=== PATIENT | male | born 2000 | race Caucasian/White ===

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

== ENCOUNTER → 2019-02-03 | Outpatient (CLI) | payer BC ==
[2019-02-03 20:35] LABS: Immunoglobulin E 4.27 IU/mL (0.00-114.00)
[2019-02-03 20:53] LABS: Parathyroid Hormone Intact 55.8 pg/mL (14.0-72.0)
[2019-02-04 12:16] LABS: Immunoglobulin A 28.2 mg/dL (60.0-350.0)
== END | disposition home or self-care (01) ==
LOC: LABWHC1 13:36
PROVIDERS: ATTEND Internal Medicine
DX: D80.1 Nonfamilial hypogammaglobulinemia (principal)
CPT/HCPCS: 36415; 82784; 82785; 83970; 84439; 84443; 86334

== ENCOUNTER → 2019-07-24 | Outpatient (CLI) | payer BC ==
[2019-07-24 10:34] LABS: Anisocytosis Slight; Basophils % (A) 0 %; Eosinophils # (A) 0.1 k/uL (0-0.7); Eosinophils % (A) 1 %; HCT 42.2 % (39.0-53.0); HGB 13.8 gm/dL (13.0-17.5); Lymphocytes # (A) 1.5 k/uL (1.0-4.8); Lymphocytes % (A) 21 %; MCH 24.2 pg (25.0-35.0); MCHC 32.7 g/dL (31.0-37.0); MCV 73.9 fL (80.0-100.0); Microcytosis Moderate; Monocytes # (A) 0.4 k/uL (0-1.0); Monocytes % (A) 5 %; Neutrophils # (A) 5.3 k/uL (1.3-7.7); Neutrophils % (A) 71 %; Platelet Count 121 k/uL (150-450); Poikilocytosis Slight; RDW 16.8 % (11.5-15.5); Reticulocyte % 1.9 % (0.5-2.0); WBC 7.4 k/uL (4.0-11.0)
[2019-07-24 20:30] LABS: % Iron Saturation 15.77 (15.00-50.00)
[2019-07-24 20:41] LABS: Ferritin 65.2 ng/mL (22.0-322.0)
== END | disposition home or self-care (01) ==
LOC: LABWHC1 09:32
PROVIDERS: ATTEND Internal Medicine
DX: E03.9 Hypothyroidism, unspecified (principal); L65.9 Nonscarring hair loss, unspecified; D64.9 Anemia, unspecified; F45.21 Hypochondriasis
CPT/HCPCS: 36415; 82728; 82947; 83540; 83550; 84439; 84443; 84630; 85025; 85045

== ENCOUNTER 2019-08-08 14:30 | Emergency (ER) | payer BC ==
[2019-08-08 14:35] VITALS: TEMP 97.9
--- NOTE | 2019-08-08 15:50 | XR ---
EXAMINATION TYPE: XR chest 2V DATE OF EXAM: 08/08/2019 COMPARISON: 04/05/2005 HISTORY: Chest pain TECHNIQUE: Frontal and lateral views of the chest are obtained. FINDINGS: There is no focal air space opacity, pleural effusion, or pneumothorax seen. The cardiac silhouette size is within normal limits. The osseous structures are intact. IMPRESSION: No acute cardiopulmonary process.
[2019-08-08 15:57] VITALS: RESP 18
[2019-08-08 16:02] LABS: Anisocytosis Slight; Basophils % (A) 0 %; Eosinophils # (A) 0.1 k/uL (0-0.7); Eosinophils % (A) 1 %; HCT 39.7 % (39.0-53.0); HGB 13.1 gm/dL (13.0-17.5); Lymphocytes # (A) 1.5 k/uL (1.0-4.8); Lymphocytes % (A) 15 %; MCH 24.3 pg (25.0-35.0); MCV 73.7 fL (80.0-100.0); Mean Platelet Volume 7.3; Microcytosis Moderate; Monocytes # (A) 0.4 k/uL (0-1.0); Monocytes % (A) 4 %; Neutrophils # (A) 7.6 k/uL (1.3-7.7); Neutrophils % (A) 78 %; Platelet Count 104 k/uL (150-450); Poikilocytosis Slight; RBC 5.38 m/uL (4.30-5.90); RDW 16.9 % (11.5-15.5); WBC 9.7 k/uL (4.0-11.0)
[2019-08-08 16:15] LABS: ALT 44 U/L (21-72); AST 23 U/L (17-59); African American GFR (CKD) >90 (>60 ml/min/1.73 sqM); Albumin 4.2 g/dL (3.5-5.0); Alkaline Phosphatase 95 U/L (38-126); Anion Gap 7 mmol/L; Blood Urea Nitrogen 15 mg/dL (9-20); Calcium 9.6 mg/dL (8.4-10.2); Carbon Dioxide 29 mmol/L (22-30); Chloride 106 mmol/L (98-107); Creatine Kinase 67 U/L (55-170); Glucose 95 mg/dL (74-99); Potassium 4.6 mmol/L (3.5-5.1); Sodium 142 mmol/L (137-145); Total Bilirubin 0.8 mg/dL (0.2-1.3); Total Protein 6.8 g/dL (6.3-8.2)
[2019-08-08 16:20] LABS: D-Dimer 0.29 mg/L FEU (<0.60); Partial Thromboplastin Time 24.1 sec (22.0-30.0); Prothrombin Time 10.6 sec (9.0-12.0)
--- NOTE | 2019-08-08 16:44 | ED ---
Chest Pain HPI - General Chief Complaint: Chest Pain Stated Complaint: Chest pain Time Seen by Provider: 08/08/19 14:57 Source: patient, RN notes reviewed Mode of arrival: ambulatory Limitations: no limitations - History of Present Illness Initial Comments: This is a 19-year-old male who presents with complaints of sharp left-sided chest pain. Mild to moderate in severity change much with certain movements or positional changes he was recently discharged from [facility]. 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 He currently denies any fevers chills nausea vomiting sweats cough or phlegm production or other symptoms. MD Complaint: chest pain - Related Data Home Medications Medication Instructions Recorded Confirmed Levothyroxine Sodium [Tirosint] 75 mcg PO DAILY 08/18/18 08/08/19 Ferrous Sulfate [Feosol] 325 mg PO DAILY 08/08/19 08/08/19 Metoprolol Succinate (ER) [Toprol 25 mg PO DAILY 08/08/19 08/08/19 Xl] Triamcinolone 0.1% Cream [Kenalog 1 applicatio TOPICAL BID 08/08/19 08/08/19 0.1% Cream] Allergies Allergy/AdvReac Type Severity Reaction Status Date / Time levofloxacin Allergy Rash/Hives Verified 08/08/19 14:56 sulfamethoxazole Allergy Rash/Hives Verified 08/08/19 14:56 [From Bactrim] trimethoprim [From Bactrim] Allergy Rash/Hives Verified 08/08/19 14:56 Review of Systems ROS Statement: Those systems with pertinent positive or pertinent negative responses have been documented in the HPI. ROS Other: All systems not noted in ROS Statement are negative. EKG Findings - EKG Results: EKG: interpreted by BLAINE, sinus rhythm (Sinus bradycardia rate of 57-year-old 44 QRS 82 QT/QTC 420/[address]-T wave changes) Past Medical History Past Medical History: Thyroid Disorder Additional Past Medical History / Comment(s): sensory auditory processing disorder. hypogammagloulinemia. speech disorder History of Any Multi-Drug Resistant Organisms: MRSA Date of last positivie culture/infection: 2009 MDRO Source:: left knee Past Surgical History: Adenoidectomy, Appendectomy, Tonsillectomy Additional Past Surgical History / Comment(s): ear tubes. Past Psychological History: No Psychological Hx Reported Smoking Status: Never smoker Past Alcohol Use History: None Reported Past Drug Use History: None Reported General Exam - General Exam Comments Initial Comments: This is a well-developed well-nourished awake alert oriented 3 male Limitations: no limitations General appearance: alert, in no apparent distress Head exam: Present: atraumatic, normocephalic, normal inspection Eye exam: Present: normal appearance, PERRL, EOMI. Absent: scleral icterus, conjunctival injection, periorbital swelling ENT exam: Present: normal exam, mucous membranes moist Neck exam: Present: normal inspection. Absent: tenderness, meningismus, lymphadenopathy Respiratory exam: Present: normal lung sounds bilaterally, chest wall tenderness (Left costochondral margin. No step-off or crepitation). Absent: respiratory distress, wheezes, rales, rhonchi, stridor Cardiovascular Exam: Present: regular rate, normal rhythm, normal heart sounds. Absent: systolic murmur, diastolic murmur, rubs, gallop, clicks GI/Abdominal exam: Present: soft, normal bowel sounds. Absent: distended, tenderness, guarding, rebound, rigid Extremities exam: Present: normal inspection, full ROM, normal capillary refill. Absent: tenderness, pedal edema, joint swelling, calf tenderness Back exam: Present: normal inspection Neurological exam: Present: alert, oriented X3, CN II-XII intact Psychiatric exam: Present: normal affect, normal mood Skin exam: Present: warm, dry, intact, normal color. Absent: rash Course Vital Signs 08/08/19 08/08/19 08/08/19 14:32 14:54 15:56 Temperature 97.9 F Pulse Rate 61 67 Pulse Rate [ 58 L Drum Maker ] Respiratory 22 18 Rate Blood Pressure 145/85 137/64 O2 Sat by Pulse 100 97 Oximetry 08/08/19 16:48 Temperature Pulse Rate 60 Pulse Rate [ Drum Maker ] Respiratory 18 Rate Blood Pressure 125/86 O2 Sat by Pulse 99 Oximetry Chest Pain MDM - MDM I did review the imaging and report no acute findings. I did a long discussion with the patient's mother regarding the findings of critical presentation is consistent with costochondritis. Patient will be discharged he does have nonsteroidal anti-inflammatories at home which she will use. He will otherwise continue with his follow-ups. Additionally the patient does recall that he was lifting helps with [employer] in prior to the manifestation of the chest discomfort Disposition Clinical Impression: Costochondritis, Chest wall syndrome Disposition: HOME SELF-CARE Condition: Good Instructions (If sedation given, give patient instructions): Costochondritis (ED) Additional Instructions: Use your [id number]-vkejhzh ibuprofen as discussed. Is patient prescribed a controlled substance at d/c from ED?: No Referrals: Jonathon Mendes MD [Primary Care Provider] - 1-2 days
[2019-08-08 17:38] VITALS: BP 141/76; PULSE 87
== END 2019-08-08 17:39 | disposition home or self-care (01) ==
LOC: EC 14:30
DX: M94.0 Chondrocostal junction syndrome [Tietze] (principal); E07.9 Disorder of thyroid, unspecified; Z79.890 Hormone replacement therapy; Z79.899 Other long term (current) drug therapy; Z88.1 Allergy status to other antibiotic agents; Z88.2 Allergy status to sulfonamides
CPT/HCPCS: 36415; 71046; 80053; 82550; 83690; 83735; 83880; 84484; 85025; 85379; 85610; 85730; 93005; 99285

== ENCOUNTER → 2019-08-25 | Outpatient (CLI) | payer BC ==
[2019-08-25 13:16] LABS: Anisocytosis Slight; Basophils # (A) 0.1 k/uL (0-0.2); Basophils % (A) 1 %; Eosinophils # (A) 0.1 k/uL (0-0.7); Eosinophils % (A) 1 %; HCT 43.6 % (39.0-53.0); Lymphocytes # (A) 1.5 k/uL (1.0-4.8); Lymphocytes % (A) 18 %; MCHC 34.4 g/dL (31.0-37.0); MCV 75.8 fL (80.0-100.0); Mean Platelet Volume 7.3; Microcytosis Slight; Monocytes # (A) 0.4 k/uL (0-1.0); Monocytes % (A) 5 %; Neutrophils # (A) 6.1 k/uL (1.3-7.7); Neutrophils % (A) 73 %; Platelet Count 128 k/uL (150-450); Poikilocytosis Slight; RBC 5.75 m/uL (4.30-5.90); RDW 16.8 % (11.5-15.5); WBC 8.4 k/uL (4.0-11.0)
[2019-08-25 14:49] LABS: Erythrocyte Sedimentation Rate 7 mm/hr (0-15)
[2019-08-25 18:45] LABS: Protein, Total 6.8 g/dL (6.2-8.2)
[2019-08-25 20:36] LABS: ALT 46 U/L (10-49); AST 25 U/L (14-35); African American GFR (CKD) 157.5 (60.0-200.0); Albumin/Globulin Ratio 2.58 (1.60-3.17); Alkaline Phosphatase 145 U/L (41-126); BUN/Creat Ratio 24.29 Ratio (12.00-20.00); C Reactive Protein <0.4 mg/dL (0.0-0.8); Calcium 9.9 mg/dL (8.7-10.3); Carbon Dioxide 26.2 mmol/L (21.6-31.8); Chloride 106 mmol/L (96-109); Cholesterol 120 mg/dL (0-200); Creatine Kinase 87 U/L (35-257); Globulin 1.9 g/dL (1.6-3.3); Glucose 99 mg/dL (70-110); LDL Cholesterol,Calculated 67.8 mg/dL (0.0-131.0); Magnesium 1.9 mg/dL (1.5-2.4); Non-African American GFR(CKD) 135.9 (60.0-200.0); Phosphorus 3.7 mg/dL (2.4-5.1); Potassium 4.8 mmol/L (3.5-5.5); Sodium 140 mmol/L (135-145); Total Bilirubin 0.7 mg/dL (0.3-1.2); Total Protein 6.8 g/dL (6.2-8.2); Uric Acid 7.8 mg/dL (3.7-8.7)
[2019-08-27 10:14] LABS: Albumin 4.43 g/dL (3.80-4.90); Gamma Globulin 0.93 g/dL (0.70-1.50)
== END | disposition home or self-care (01) ==
LOC: LABWHC1 11:47
PROVIDERS: ATTEND Internal Medicine
DX: D64.9 Anemia, unspecified (principal); E78.5 Hyperlipidemia, unspecified; E87.1 Hypo-osmolality and hyponatremia; E05.90 Thyrotoxicosis, unspecified without thyrotoxic crisis or storm; E87.0 Hyperosmolality and hypernatremia; D80.1 Nonfamilial hypogammaglobulinemia; R23.8 Other skin changes
CPT/HCPCS: 36415; 80053; 80061; 82306; 82550; 83735; 84100; 84165; 84443; 84550; 85025; 85652; 86038; 86140

== ENCOUNTER 2019-09-20 00:54 | Inpatient (IN) | payer BC ==
[2019-09-20] MEDS ORDERED: ONDANSETRON 4 MG/2 ML VIAL IVP STA (01:19)
[2019-09-20] MEDS ORDERED: SODIUM CHLORIDE 0.9% 1,000 ML IV STA (01:19)
[2019-09-20] MEDS ORDERED: KETOROLAC 30 MG/ML 1 ML VIAL IVP STA (01:19)
--- NOTE | 2019-09-20 01:22 | ED ---
Abdominal Pain HPI - General Chief Complaint: Abdominal Pain Stated Complaint: Side Pain/Pancreatitis Time Seen by Provider: 09/20/19 01:04 Source: patient, family Mode of arrival: ambulatory Limitations: no limitations - History of Present Illness Initial Comments: 19-year-old male patient presents to the emergency department today for evaluation of left flank and side pain. Patient states the pain started approximately a day and a half ago. Patient states the pain has been constant but does wax and wane. Reports a constant dull aching pain with intermittent periods of sharp stabbing pain. Denies any difficulty with bowel movements or urination. Denies hematuria. Patient does have recent history of necrotizing pancreatitis with a splenic thrombus. He also has an autoimmune condition hypogammaglobulinemia. Patient does see a specialist at [facility] for this. He is reports intermittent nausea with decreased appetite. Denies fevers or chills. Denies history of kidney stones. Patient denies any recent rash, shortness breath, chest pain, numbness, tingling, dizziness, weakness, headache, visual changes, or any other complaints. - Related Data Home Medications Medication Instructions Recorded Confirmed Levothyroxine Sodium [Tirosint] 75 mcg PO DAILY 08/18/18 08/08/19 Ferrous Sulfate [Feosol] 325 mg PO DAILY 08/08/19 08/08/19 Metoprolol Succinate (ER) [Toprol 25 mg PO DAILY 08/08/19 08/08/19 Xl] Triamcinolone 0.1% Cream [Kenalog 1 applicatio TOPICAL BID 08/08/19 08/08/19 0.1% Cream] Allergies Allergy/AdvReac Type Severity Reaction Status Date / Time levofloxacin Allergy Rash/Hives Verified 09/20/19 01:01 sulfamethoxazole Allergy Rash/Hives Verified 09/20/19 01:01 [From Bactrim] trimethoprim [From Bactrim] Allergy Rash/Hives Verified 09/20/19 01:01 Review of Systems ROS Statement: Those systems with pertinent positive or pertinent negative responses have been documented in the HPI. ROS Other: All systems not noted in ROS Statement are negative. Past Medical History Past Medical History: Thyroid Disorder Additional Past Medical History / Comment(s): sensory auditory processing disorder. hypogammagloulinemia. speech disorder History of Any Multi-Drug Resistant Organisms: MRSA Date of last positivie culture/infection: 2010 MDRO Source:: left knee Past Surgical History: Adenoidectomy, Appendectomy, Tonsillectomy Additional Past Surgical History / Comment(s): ear tubes. Past Psychological History: No Psychological Hx Reported Smoking Status: Never smoker Past Alcohol Use History: None Reported Past Drug Use History: None Reported General Exam Limitations: no limitations General appearance: alert, in no apparent distress, other (This is a well- developed, well-nourished adult male patient in no acute distress. Vital signs upon presentation are temperature 98.3F, pulse 89, respirations 20, blood pressure 158/91, pulse ox 97% on room air.) Eye exam: Present: normal appearance, PERRL, EOMI. Absent: scleral icterus, conjunctival injection, periorbital swelling ENT exam: Present: normal exam, normal oropharynx, mucous membranes moist Neck exam: Present: normal inspection. Absent: tenderness, meningismus, lymphadenopathy Respiratory exam: Present: normal lung sounds bilaterally. Absent: respiratory distress, wheezes, rales, rhonchi, stridor Cardiovascular Exam: Present: regular rate, normal rhythm, normal heart sounds. Absent: systolic murmur, diastolic murmur, rubs, gallop, clicks GI/Abdominal exam: Present: soft, tenderness (Left lower quadrant tenderness), normal bowel sounds. Absent: distended, guarding, rebound, rigid Back exam: Present: normal inspection, CVA tenderness (L). Absent: CVA tenderness (R) Neurological exam: Present: alert, oriented X3, CN II-XII intact Psychiatric exam: Present: normal affect, normal mood Skin exam: Present: warm, dry, intact, normal color. Absent: rash Course Vital Signs 09/20/19 09/20/19 09/20/19 00:57 02:00 03:34 Temperature 98.3 F 97.2 F L Pulse Rate 89 82 77 Respiratory 20 18 18 Rate Blood Pressure 158/91 141/72 127/66 O2 Sat by Pulse 97 97 98 Oximetry Medical Decision Making - Medical Decision Making 19-year-old male patient with history of necrotizing pancreatitis in March 2018 presents to the emergency department today for evaluation of left-sided abdominal pain. Physical examination did reveal some left mid to lower abdom inal tenderness. Some left CVA tenderness. Labs reviewed and did reveal mildly elevated lipase at 312. Given history we did perform CT abdomen and pelvis which showed inflammation and fluid surrounding the pancreas, mother states that this was not present with his last MRCP 2 months ago. Also showed hepatosplenomegaly which is consistent with his history. I did discuss findings and results with the patient and family. They're uncomfortable being discharged at this time. We'll admit for IV fluids and repeat labs in the morning. Dr. Mendes is accepting. - Lab Data Result diagrams: 09/20/19 02:00 09/20/19 02:00 Lab Results 09/20/19 09/20/19 09/20/19 Range/Units 02:00 02:00 02:00 WBC 8.2 (4.0-11.0) k/uL RBC 5.07 (4.30-5.90) m/uL Hgb 13.4 (13.0-17.5) gm/dL Hct 39.1 (39.0-53.0) % MCV 77.2 L (80.0-100.0) fL MCH 26.4 (25.0-35.0) pg MCHC 34.2 (31.0-37.0) g/dL RDW 15.5 (11.5-15.5) % Plt Count 108 L (150-450) k/uL Neutrophils % 70 % Lymphocytes % 20 % Monocytes % 6 % Eosinophils % 2 % Basophils % 0 % Neutrophils # 5.8 (1.3-7.7) k/uL Lymphocytes # 1.7 (1.0-4.8) k/uL Monocytes # 0.5 (0-1.0) k/uL Eosinophils # 0.1 (0-0.7) k/uL Basophils # 0.0 (0-0.2) k/uL Poikilocytosis Slight Microcytosis Slight Sodium 138 (137-145) mmol/L Potassium 3.9 (3.5-5.1) mmol/L Chloride 104 (98-107) mmol/L Carbon Dioxide 24 (22-30) mmol/L Anion Gap 10 mmol/L BUN 20 (9-20) mg/dL Creatinine 0.71 (0.66-1.25) mg/dL Est GFR (CKD-EPI)AfAm >90 (>60 ml/min/1.73 sqM) Est GFR (CKD-EPI)NonAf >90 (>60 ml/min/1.73 sqM) Glucose 102 H (74-99) mg/dL Plasma Lactic Acid [place] 0.6 L (0.7-2.0) mmol/L Calcium 9.9 (8.4-10.2) mg/dL Total Bilirubin 0.6 (0.2-1.3) mg/dL AST 21 (17-59) U/L ALT 24 (4-49) U/L Alkaline Phosphatase 118 (38-126) U/L Total Protein 7.2 (6.3-8.2) g/dL Albumin 4.5 (3.5-5.0) g/dL Amylase 64 (30-110) U/L Lipase 312 H (23-300) U/L Urine Color Urine Appearance (Clear) Urine pH (5.0-8.0) Ur Specific [place] (1.001-1.035) Urine Protein (Negative) Urine Glucose (UA) (Negative) Urine Ketones (Negative) Urine Blood (Negative) Urine Nitrite (Negative) Urine Bilirubin (Negative) Urine Urobilinogen (<2.0) mg/dL Ur Leukocyte Esterase (Negative) 09/20/19 Range/Units 02:00 WBC (4.0-11.0) k/uL RBC (4.30-5.90) m/uL Hgb (13.0-17.5) gm/dL Hct (39.0-53.0) % MCV (80.0-100.0) fL MCH (25.0-35.0) pg MCHC (31.0-37.0) g/dL RDW (11.5-15.5) % Plt Count (150-450) k/uL Neutrophils % % Lymphocytes % % Monocytes % % Eosinophils % % Basophils % % Neutrophils # (1.3-7.7) k/uL Lymphocytes # (1.0-4.8) k/uL Monocytes # (0-1.0) k/uL Eosinophils # (0-0.7) k/uL Basophils # (0-0.2) k/uL Poikilocytosis Microcytosis Sodium (137-145) mmol/L Potassium (3.5-5.1) mmol/L Chloride (98-107) mmol/L Carbon Dioxide (22-30) mmol/L Anion Gap mmol/L BUN (9-20) mg/dL Creatinine (0.66-1.25) mg/dL Est GFR (CKD-EPI)AfAm (>60 ml/min/1.73 sqM) Est GFR (CKD-EPI)NonAf (>60 ml/min/1.73 sqM) Glucose (74-99) mg/dL Plasma Lactic Acid Anjum (0.7-2.0) mmol/L Calcium (8.4-10.2) mg/dL Total Bilirubin (0.2-1.3) mg/dL AST (17-59) U/L ALT (4-49) U/L Alkaline Phosphatase (38-126) U/L Total Protein (6.3-8.2) g/dL Albumin (3.5-5.0) g/dL Amylase (30-110) U/L Lipase (23-300) U/L Urine Color Light Yellow Urine Appearance Clear (Clear) Urine pH 6.5 (5.0-8.0) Ur Specific [place] 1.016 (1.001-1.035) Urine Protein Negative (Negative) Urine Glucose (UA) Negative (Negative) Urine Ketones Negative (Negative) Urine Blood Negative (Negative) Urine Nitrite Negative (Negative) Urine Bilirubin Negative (Negative) Urine Urobilinogen <2.0 (<2.0) mg/dL Ur Leukocyte Esterase Negative (Negative) - Radiology Data Radiology results: report reviewed, image reviewed KUB x-ray was obtained. Report was reviewed in its entirety. Impression by Dr. Banegas shows nonacute abdomen. No change. CT abdomen and pelvis is obtained with contrast. Report was reviewed in its entirety. Impression by Dr. Banegas shows inflammatory changes around the pancreas with fluid consistent with acute pancreatitis. This is a change compared to last exam. Mild free fluid in the pelvis. Hepatospleno megaly. No evidence of portal vein thrombosis. Fluid accumulation on the anterior surface of the right lobe of the liver could be a pseudocyst or some loculated ascites. Disposition Clinical Impression: Pancreatitis Disposition: ADMITTED IP TO THIS [facility] Condition: Serious Referrals: Jonathon Mendes MD [Primary Care Provider] - 1-2 days Decision to Admit Reason: Admit from EC Decision Date: 09/20/19 Decision Time: 04:28
[2019-09-20 02:19] LABS: Basophils % (A) 0 %; Eosinophils # (A) 0.1 k/uL (0-0.7); Eosinophils % (A) 2 %; HCT 39.1 % (39.0-53.0); HGB 13.4 gm/dL (13.0-17.5); Lymphocytes # (A) 1.7 k/uL (1.0-4.8); Lymphocytes % (A) 20 %; MCH 26.4 pg (25.0-35.0); MCHC 34.2 g/dL (31.0-37.0); MCV 77.2 fL (80.0-100.0); Mean Platelet Volume 8.5; Microcytosis Slight; Monocytes # (A) 0.5 k/uL (0-1.0); Monocytes % (A) 6 %; Neutrophils # (A) 5.8 k/uL (1.3-7.7); Neutrophils % (A) 70 %; Platelet Count 108 k/uL (150-450); Poikilocytosis Slight; RBC 5.07 m/uL (4.30-5.90); RDW 15.5 % (11.5-15.5); WBC 8.2 k/uL (4.0-11.0)
[2019-09-20 02:21] LABS: Appearance,Urine Clear (Clear); Bilirubin,Urine Negative (Negative); Blood,Urine Negative (Negative); Color,Urine Light Yellow; Glucose,Urine (UA) Negative (Negative); Ketones,Urine Negative (Negative); Leukocyte Esterase,Urine Negative (Negative); Nitrite,Urine Negative (Negative); PH, Urine 6.5 (5.0-8.0); Protein,Urine Negative (Negative); Specific Gravity,Urine 1.016 (1.001-1.035); Urobilinogen,Urine <2.0 mg/dL (<2.0)
--- NOTE | 2019-09-20 02:25 | XR ---
EXAMINATION TYPE: XR KUB DATE OF EXAM: 09/20/2019 COMPARISON: 04/27/2014 HISTORY: Abdominal pain TECHNIQUE: 2 views upright FINDINGS: There is no sign of intestinal obstruction or pneumoperitoneum. Fecal pattern is normal. Th ere are no pathologic calcifications over the kidneys. Lung bases are clear. There is no evidence of a mass. IMPRESSION: Nonacute abdomen. No change.
[2019-09-20 02:31] LABS: ALT 24 U/L (4-49); AST 21 U/L (17-59); African American GFR (CKD) >90 (>60 ml/min/1.73 sqM); Albumin 4.5 g/dL (3.5-5.0); Alkaline Phosphatase 118 U/L (38-126); Amylase 64 U/L (30-110); Anion Gap 10 mmol/L; Blood Urea Nitrogen 20 mg/dL (9-20); Calcium 9.9 mg/dL (8.4-10.2); Carbon Dioxide 24 mmol/L (22-30); Chloride 104 mmol/L (98-107); Glucose 102 mg/dL (74-99); Non-African American GFR(CKD) >90 (>60 ml/min/1.73 sqM); Potassium 3.9 mmol/L (3.5-5.1); Sodium 138 mmol/L (137-145); Total Bilirubin 0.6 mg/dL (0.2-1.3); Total Protein 7.2 g/dL (6.3-8.2)
--- NOTE | 2019-09-20 03:43 | CT ---
EXAMINATION TYPE: CT abdomen pelvis w con DATE OF EXAM: 09/20/2019 COMPARISON: 02/14/2013 HISTORY: pain CT DLP: 1971 mGycm Automated exposure control for dose reduction was used. CONTRAST: Performed with IV Contrast, patient injected with 100 mL of Isovue 300. Multiple axial sections were obtained from the diaphragm to the floor the pelvis with IV contrast. Lung bases are clear. There is no pleural effusion. There is a 4.5 cm cystic fluid collection on the anterior aspect of the right lobe of the liver. Is not clear if this is within the liver. This is mor e likely extracapsular. Spleen is markedly enlarged and measures 21 cm. The bile ducts are not dilate d. Liver is mildly enlarged and measures 20 cm. The stomach is intact. There is fat stranding and fluid around the pancreas. The bile ducts are not dilated. I see no discre te pancreatic mass. There is no adrenal mass. Kidneys show satisfactory contrast opacification. There is no hydronephrosi s. Bladder distends smoothly. There is small amount of free fluid in the cul-de-sac. There is no mesenteric edema. There is no evidence of a bowel obstruction. There is no sign of free a ir. Lumbar vertebra have normal alignment. Posterior elements are intact. There is no compression fra cture. Bony pelvis is intact. Appendix is not seen. There is no sign of thickened appendix. IMPRESSION: Inflammatory changes around the pancreas with fluid consistent with acute pancreatitis. This is a jayne nge compared to old exam. Mild free fluid in the pelvis. Hepatosplenomegaly. No evidence of portal vein thrombosis. Fluid accumulation on the anterior surface of the right lobe of the liver could BE a pseudocyst or some loculated ascites.
[2019-09-20] MEDS ORDERED: MORPHINE SULFATE 4 MG/ML SYRINGE IVP STA (03:45)
[2019-09-20] MEDS ORDERED: NALOXONE 0.4 MG/ML 1 ML VIAL IV PRN (04:09)
[2019-09-20] MEDS ORDERED: ONDANSETRON 4 MG/2 ML VIAL IVP PRN (04:09)
[2019-09-20] MEDS: SODIUM CHLORIDE 0.9% 1,000 ML IV SCH ×2 (06:01→19:24)
[2019-09-20] MEDS: MORPHINE SULFATE 4 MG/ML SYRINGE IV PRN ×2 (11:33→19:23)
--- NOTE | 2019-09-20 12:22 | P.HPIM ---
History of Present Illness H&P Date: 09/20/19 ( admission and discharge) Chief Complaint: patient has underlying acute pancreatitis with the exacerbation patient admission and discharge summary. Date of service 09/20/2019. Patient Data from 476 , date of 1999, full code. Presented to the emergency room with abdominal painKUB was negative,computed tomography scan impression indicating inflammatory changes around the pancreas with the fluid consistent with acute pancreatitis., hepatosplenomegaly, no evid ence of portal vein thrombosis,lipase is 312. And on Micronase 64. Patient subsequently admitted to observation until we contact the [facility] and transfer to the pediatric [facility] GI section. Patient admitted under observation status and I did talk to Dr. Traore today after several discussion with the other entity and [facility] for the possibility of the transfer her to [facility] as they instructed the patient and his mother. Dr. Traore indicating that continue clear liquid diet as well as continue the current medication. And he will be discussing with the administration and accepting the patient. Past medical history chronic pancreatitis history of fever in the past and has also underlying genetic abnormalities and has been treated and [facility] pediatric floor extended over the years and that the advised him in the gastrointestinal final Department if he had any abdominal pain to report to [facility]. However he called the [facility] yesterday he saw them go to the closest hospital and to be transferred however this messages was not transplanted to the PA who admitted the patient lost night on the floor and he supposed to go direct transfer to [facility]. History of possible autoimmune disease, genetic disease. Patient is adopted and no history of his biological when necessary's. ALLERGY to levofloxacin once sulfamethoxazole trimethoprim. He is a full code and his data is 6 foot 1 inch and weight 105.4 kg. BSA 2.29 m, BMI 30.7 kg/m. And . Review of system: Patient had started the abdominal pain which is progressively worsening started 2-3 days prior to admission and a UA, uncomfortable at that time they came to the ER after the cold the [facility]. And he denied any nausea or vomiting but the pain his in the level of 7-8 however now i t's average of 6 or 5 with the pain medication. Respiratory no cough or expectoration GI mainly the abdominal pain with a history of prior pancreatitis has been followed by the GI clinic in [facility]. The urinary no dysuria or hematuria. Normal bowel movement. Musculoskeletal was negative no pain no cramps. At the wrist or the 14 point was negative. On on exam: Vital sign temperature 96.3 F oral, pulse 61/m, regular Respiratory rate 16 blood pressure 122/59 with a mean arterial pressure 80. Pulse ox 97%(. HEENT head was normocephalic and atraumatic, he had facial erythema was rosacea was ruling out autoimmune disease. Oropharynx was normal natural teeth uvula midline. Neck was supple no JVD no thyromegaly no lymphadenopathy trachea midline. Chest was clear to auscultation percussion. Heart regular sinus rhythm The abdomen tenderness positive bowel sounds, the tenderness from the epigastric extended to the left side and no history of stone. Indicating of the pain of t he pancreatitis. Extremities: No edema and positive pulses. Assessment: #1 acute pancreatitis, #2 recurrent with the associated inflammatory finding on the CT. #3 hepatosplenomegaly by the CAT scan. #4 rosacea fascia until proven otherwise and he has been followed by the autoimmune in the [facility]. Recommendation and plan: After significant discussion and the time involved for transfer failure 1 hour added to communication with the family mother and father have an hour with his examination. Patient accepted by Dr. Traore to [facility] and will be transferred today to [facility]. Dr. Mcknight requested this CDs for the investigation done as well Past Medical History Past Medical History: Thyroid Disorder Additional Past Medical History / Comment(s): sensory auditory processing disorder. hypogammagloulinemia. speech disorder History of Any Multi-Drug Resistant Organisms: MRSA Date of last positivie culture/infection: 2009 MDRO Source:: left knee Past Surgical History: Adenoidectomy, Appendectomy, Tonsillectomy Additional Past Surgical History / Comment(s): ear tubes. Smoking Status: Never smoker Medications and Allergies Home Medications Medication Instructions Recorded Confirmed Type Levothyroxine Sodium [Tirosint] 75 mcg PO DAILY 08/18/18 09/20/19 History Triamcinolone 0.1% Cream [Kenalog 1 applicatio TOPICAL BID 08/08/19 09/20/19 History 0.1% Cream] Acetaminophen Tab [Tylenol Tab] 325 mg PO Q4H PRN 09/20/19 09/20/19 History Allergies Allergy/AdvReac Type Severity Reaction Status Date / Time levofloxacin Allergy Rash/Hives Verified 09/20/19 09:55 sulfamethoxazole Allergy Rash/Hives Verified 09/20/19 09:55 [From Bactrim] trimethoprim [From Bactrim] Allergy Rash/Hives Verified 09/20/19 09:55 Physical Exam Vitals: Vital Signs Temp Pulse Pulse Resp BP BP Pulse Ox 09/20/19 09:55 96.3 F L 61 16 122/59 09/20/19 07:10 59 L 16 97 09/20/19 06:11 98.0 F 72 15 130/78 96 09/20/19 03:34 77 18 127/66 98 09/20/19 02:00 97.2 F L 82 18 141/72 97 09/20/19 00:57 98.3 F 89 20 158/91 97 Intake and Output 09/19/19 09/20/19 09/20/19 22:59 06:59 14:59 Other: Weight 105.4 kg 105.4 kg Results CBC & Chem 7: 09/20/19 02:00 09/20/19 02:00 Labs: Abnormal Lab Results - Last 24 Hours (Table) 09/20/19 09/20/19 09/20/19 Range/Units 02:00 02:00 02:00 MCV 77.2 L (80.0-100.0) fL Plt Count 108 L (150-450) k/uL Glucose 102 H (74-99) mg/dL Plasma Lactic Acid Anjum 0.6 L (0.7-2.0) mmol/L Lipase 312 H (23-300) U/L Thrombosis Risk Factor Assmnt - Choose All That Apply Any of the Below Risk Factors Present?: Yes Other Risk Factors: No Other congenital or acquired thrombophilia - If yes, enter type in comment: No
[2019-09-21] MEDS: SODIUM CHLORIDE 0.9% 1,000 ML IV SCH ×2 (00:44→08:54)
[2019-09-21 07:21] VITALS: BP 112/55; PULSE 67; RESP 17; TEMP 97.9
[2019-09-21] MEDS ORDERED: LEVOTHYROXINE 75 MCG TAB PO SCH (08:30)
[2019-09-21 09:59] LABS: Basophils % (A) 0 %; Eosinophils # (A) 0.1 k/uL (0-0.7); Eosinophils % (A) 1 %; HCT 34.5 % (39.0-53.0); HGB 11.7 gm/dL (13.0-17.5); Lymphocytes # (A) 0.9 k/uL (1.0-4.8); Lymphocytes % (A) 21 %; MCH 26.7 pg (25.0-35.0); MCV 78.7 fL (80.0-100.0); Mean Platelet Volume 8.2; Monocytes # (A) 0.3 k/uL (0-1.0); Monocytes % (A) 6 %; Neutrophils # (A) 3.1 k/uL (1.3-7.7); Neutrophils % (A) 71 %; Poikilocytosis Slight; RBC 4.38 m/uL (4.30-5.90); RDW 15.5 % (11.5-15.5); WBC 4.4 k/uL (4.0-11.0)
[2019-09-21 10:08] LABS: ALT 20 U/L (4-49); AST 24 U/L (17-59); African American GFR (CKD) >90 (>60 ml/min/1.73 sqM); Albumin 3.6 g/dL (3.5-5.0); Alkaline Phosphatase 93 U/L (38-126); Amylase <30 U/L (30-110); Anion Gap 7 mmol/L; Blood Urea Nitrogen 12 mg/dL (9-20); Calcium 9.2 mg/dL (8.4-10.2); Carbon Dioxide 23 mmol/L (22-30); Chloride 109 mmol/L (98-107); Glucose 122 mg/dL (74-99); Non-African American GFR(CKD) >90 (>60 ml/min/1.73 sqM); Potassium 4.1 mmol/L (3.5-5.1); Sodium 139 mmol/L (137-145); Total Bilirubin 0.7 mg/dL (0.2-1.3); Total Protein 5.9 g/dL (6.3-8.2)
[2019-09-21 10:24] LABS: Platelet Count 92 k/uL (150-450)
[2019-09-21 10:25] LABS: Anisocytosis (M) Present
[2019-09-21] MEDS ORDERED: ACETAMINOPHEN TAB 325 MG TAB PO PRN (12:01)
--- NOTE | 2019-09-21 12:38 | P.DS ---
Providers Date of admission: 09/20/19 04:21 Expected date of discharge: 09/21/19 Attending physician: Jonathon Mendes Primary care physician: Jonathon Mendes Discharge summary date of service 09/21/2019. Final diagnoses #1 acute pancreatitis exacerbation. #2 hypothyroidism. #3 psoriasis. #4 hepatosplenomegaly. Admitted on 09/20/2019 discharge on 09/21 2019. 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 They did the computed tomography scan of the abdomen and laboratory indicating lipase elevation with the abdominal distribution of pain consistent with acute pancreatitis, KUB also was obtained in the ER and no evidence of cholelithiasis. Patient has a planned to have MRCP at the gastroenterology Department of the pediatric. Hospital course: ER requested patient to be admitted patient placed on nothing by mouth and IV fluid and pain medication, the family requested that I communicate with the [facility] to be transferred to their facility. Initially they agreed for the transfer, however they change their mind and they have full capacity and no blood available for the patient. As patient planned for discharge on the 09 20 as a transfer to [facility] GI. Pediatrics. They have long communication and several communication between me and Dr. Traore the [facility] pediatric GI during the day as well, requested that he reports of the CT and the laboratory which was send to them. The discharge has been withheld from [facility] because of no bed available. Laboratory done today which is indicating resolution of the acute pancreatitis with the serum lipase normalized as well as serum amylase, no abdominal pain, no fever no chills, vital signs stable and cat swamper is stable. I did call Dr. Traore on his cell phone we discussed with the case and he still no bad and [facility], however patient is result of this pain and he is normalize with no acute abdomen. Clinical decision the patient is stable to be discharged today after he eats lunch and if he is no symptoms he can go home to be followed in [facility] and Dr. Traore from [facility] said they will be in communication with his mother for laboratory test and the plan for MRCP. [id number] exam today: Head was normocephalic and atraumatic no headache, ear and nose and throat is normal, fascial he has rosacea. Neck supple no JVD no thyromegaly no lymphadenopathy trachea midline. Chest is clear to auscultation and percussion and no wheezes no rhonchi's. Heart: Regular sinus rhythm no dysrhythmia. Abdomen soft positive bowel sounds no organ enlargement except for the liver was however could not elicited that clinically the CAT scan indicating that. Extremities no edema and positive pulses. Skin: He had a psoriatic patch on the right knee treated in [facility] with the cream. Also he had rosacea fascial redness. Keratosis. Pilaris of the arms and the back no treatment needed. Neurologically: No lateralizing sign no tremor no ataxia Coumadin nurses is stable and no acute neurological abnormalities Patient had biopsy on the left fascial from dermatology to have them to differentiate between lupus and rosacea subsequently found that it is rosacea. Assessment and plan Patient is ambulatory, discontinuation of telemetry and IV fluid, continue home medication, and the left patient states has been removed., Patient will eat lunch in the hospital to see if any symptoms subsequently if no symptoms patient will be discharged home today 09/21/2019. I did communicate with Dr. Brewster's GI in [facility] and the I did relay the message that he will be contacting them for for further lab and also he will be planning for today [facility] and [facility] soon. Patient stable for discharge Patient Condition at Discharge: Serious Plan - Discharge Summary Discharge Rx Participant: No New Discharge Prescriptions: No Action Levothyroxine Sodium [Tirosint] 75 mcg PO DAILY Triamcinolone 0.1% Cream [Kenalog 0.1% Cream] 1 applicatio TOPICAL BID Acetaminophen Tab [Tylenol Tab] 325 mg PO Q4H PRN PRN Reason: Pain Or Fever > 100.5 Discharge Medication List Levothyroxine Sodium [Tirosint] 75 mcg PO DAILY 08/18/18 [History] Triamcinolone 0.1% Cream [Kenalog 0.1% Cream] 1 applicatio TOPICAL BID 08/08/19 [History] Acetaminophen Tab [Tylenol Tab] 325 mg PO Q4H PRN 09/20/19 [History] Follow up Appointment(s)/Referral(s): Jonathon Mendes MD [Primary Care Provider] - 1 Week Discharge Disposition: HOME SELF-CARE Care Plan Goals (MU): Patient stable general condition, malaise and lipase normal, abdominal pain resolved, no nausea no vomiting, advance of the diet. After lunch if no other symptoms patient will be discharged home today on 09/21/2019, I spoke to Dr. Traore in [facility] pediatric section, and they will be following him up, and he also will talk to his parents next week, patient arrange it for MRCP as outpatient and [facility] by pediatric gastroenterology. Discussed at length [id number] with the patient, mother, father
[2019-09-21] MEDS ORDERED: TRIAMCINOLONE 0.1% CREAM 80 GM TUBE TOPICAL SCH (21:00)
[2019-09-22] MEDS ORDERED: LEVOTHYROXINE 75 MCG TAB PO SCH (09:00)
== END 2019-09-21 14:29 | disposition home or self-care (01) | DRG 439 ==
LOC: EC 00:54 → UNDOADMOB 04:21 → 1SOBS 04:21 → 4SSUR 04:21
PROVIDERS: ADMIT Internal Medicine; ATTEND Internal Medicine
PROC: 0JBR3ZX Excision of Left Foot Subcutaneous Tissue and Fascia, Percutaneous Approach, Diagnostic (ICD-10-PCS; principal; 2019-09-21)
DX: K85.90 Acute pancreatitis without necrosis or infection, unspecified (principal); D80.1 Nonfamilial hypogammaglobulinemia; E03.9 Hypothyroidism, unspecified; L40.9 Psoriasis, unspecified; L71.9 Rosacea, unspecified; R16.2 Hepatomegaly with splenomegaly, not elsewhere classified; Z68.30 Body mass index [BMI] 30.0-30.9, adult; Z79.890 Hormone replacement therapy; Z88.1 Allergy status to other antibiotic agents; Z88.2 Allergy status to sulfonamides; Z86.14 Personal history of Methicillin resistant Staphylococcus aureus infection; Z90.49 Acquired absence of other specified parts of digestive tract; Z90.89 Acquired absence of other organs
CPT/HCPCS: 36415; 74018; 74177; 80053; 81003; 82150; 83605; 83690; 85025; 96361; 96374; 96375; 99285

== ENCOUNTER → 2019-09-26 | Outpatient (CLI) | payer BC ==
[2019-09-26 11:39] LABS: Basophils % (A) 0 %; Eosinophils # (A) 0.1 k/uL (0-0.7); Eosinophils % (A) 2 %; HCT 43.4 % (39.0-53.0); HGB 14.5 gm/dL (13.0-17.5); Lymphocytes # (A) 1.6 k/uL (1.0-4.8); Lymphocytes % (A) 19 %; MCH 25.8 pg (25.0-35.0); MCHC 33.5 g/dL (31.0-37.0); MCV 77.2 fL (80.0-100.0); Mean Platelet Volume 7.7; Microcytosis Slight; Monocytes # (A) 0.5 k/uL (0-1.0); Monocytes % (A) 6 %; Neutrophils # (A) 6.1 k/uL (1.3-7.7); Neutrophils % (A) 73 %; Poikilocytosis Slight; RBC 5.62 m/uL (4.30-5.90); RDW 15.4 % (11.5-15.5); WBC 8.4 k/uL (4.0-11.0)
[2019-09-26 11:42] LABS: Platelet Count 155 k/uL (150-450)
[2019-09-26 16:12] LABS: Albumin 4.9 g/dL (3.80-4.90); Albumin/Globulin Ratio 2.72 (1.60-3.17); Anion Gap 6.8 mmol/L (4.00-12.00); Calcium 9.8 mg/dL (8.7-10.3); Carbon Dioxide 25.2 mmol/L (21.6-31.8); Globulin 1.8 g/dL (1.6-3.3); Non-African American GFR(CKD) 128.6 (60.0-200.0); Potassium 4.6 mmol/L (3.5-5.5); Total Bilirubin 0.7 mg/dL (0.3-1.2); Total Protein 6.7 g/dL (6.2-8.2)
== END | disposition home or self-care (01) ==
LOC: LABWHC1 11:09
PROVIDERS: ATTEND Pediatrics
DX: K85.91 Acute pancreatitis with uninfected necrosis, unspecified (principal); I87.1 Compression of vein; R16.1 Splenomegaly, not elsewhere classified
CPT/HCPCS: 36415; 80053; 85025

== ENCOUNTER 2019-10-22 01:16 | Emergency (ER) | payer BC ==
[2019-10-22 01:30] VITALS: RESP 18
[2019-10-22] MEDS ORDERED: FAMOTIDINE 20 MG/2 ML VIAL IV STA (01:43)
[2019-10-22] MEDS ORDERED: diphenhydrAMINE 50 MG/ML 1 ML VIAL IVP STA (01:43)
[2019-10-22] MEDS ORDERED: methylPREDNISolone SOD SUCCI 125 MG/2 ML VIAL IV STA (01:43)
--- NOTE | 2019-10-22 02:00 | ED ---
Skin/Abscess/FB HPI - General Chief complaint: Skin/Abscess/Foreign Body Stated complaint: DANIA Time Seen by Provider: 10/22/19 01:34 Source: patient, family, RN notes reviewed, old records reviewed Mode of arrival: ambulatory Limitations: physical limitation - History of Present Illness Initial comments: Juan Luis is a 19-year-old male, he presents emergency department today for evaluation for hive-like rash over legs, abdomen, back and chest. Patient reports that he started noticing symptoms just this evening. He did take a Benadryl initially the symptoms seemed to resolve. He cannot think of any new exposures or concerns for ALLERGIC reactions. Patient reports that he is currently undergoing further testing for some chronic pancreatitis. He is scheduled for an ERCP at [facility] on upcoming on . Patient states that he has had no significant worsening abdominal pain, nausea or vomiting. - Related Data Home Medications Medication Instructions Recorded Confirmed Levothyroxine Sodium [Tirosint] 75 mcg PO DAILY 08/18/18 09/20/19 Triamcinolone 0.1% Cream [Kenalog 1 applicatio TOPICAL BID 08/08/19 09/20/19 0.1% Cream] Acetaminophen Tab [Tylenol Tab] 325 mg PO Q4H PRN 09/20/19 09/20/19 Previous Rx's Medication Instructions Recorded Famotidine [Pepcid] 20 mg PO DAILY #20 tablet 10/22/19 diphenhydrAMINE HCL [Benadryl] 25 mg PO QID #20 tab 10/22/19 predniSONE 20 mg PO BID #6 tab 10/22/19 Allergies Allergy/AdvReac Type Severity Reaction Status Date / Time levofloxacin Allergy Rash/Hives Verified 10/22/19 01:30 sulfamethoxazole Allergy Rash/Hives Verified 10/22/19 01:30 [From Bactrim] trimethoprim [From Bactrim] Allergy Rash/Hives Verified 10/22/19 01:30 Review of Systems ROS Statement: Those systems with pertinent positive or pertinent negative responses have been documented in the HPI. ROS Other: All systems not noted in ROS Statement are negative. Past Medical History Past Medical History: Thyroid Disorder Additional Past Medical History / Comment(s): sensory auditory processing disorder. hypogammagloulinemia. speech disorder History of Any Multi-Drug Resistant Organisms: MRSA Date of last positivie culture/infection: 2010 MDRO Source:: left knee Past Surgical History: Adenoidectomy, Appendectomy, Tonsillectomy Additional Past Surgical History / Comment(s): ear tubes. Past Psychological History: No Psychological Hx Reported Smoking Status: Never smoker Past Alcohol Use History: None Reported Past Drug Use History: None Reported General Exam - General Exam Comments Initial Comments: 19 year male. Limitations: physical limitation General appearance: alert, in no apparent distress Head exam: Present: atraumatic, normocephalic, normal inspection Eye exam: Present: normal appearance, PERRL, EOMI. Absent: scleral icterus, conjunctival injection, periorbital swelling ENT exam: Present: normal exam, mucous membranes moist Neck exam: Present: normal inspection. Absent: tenderness, meningismus, lymphadenopathy Respiratory exam: Present: normal lung sounds bilaterally. Absent: respiratory distress, wheezes, rales, rhonchi, stridor Cardiovascular Exam: Present: regular rate GI/Abdominal exam: Present: soft, normal bowel sounds. Absent: distended, tenderness, guarding, rebound, rigid Extremities exam: Present: normal inspection, full ROM, normal capillary refill. Absent: tenderness, pedal edema, joint swelling, calf tenderness Back exam: Present: normal inspection Neurological exam: Present: alert, oriented X3, CN II-XII intact Psychiatric exam: Present: normal affect, normal mood Skin exam: Present: warm, rash (Patient has a hive-like rash over bilateral lower extremities, around umbilicus, and left wrist.) Course Vital Signs 10/22/19 10/22/19 01:24 02:32 Temperature 98.6 F 98.8 F Pulse Rate 83 67 Respiratory 18 18 Rate Blood Pressure 137/82 116/59 O2 Sat by Pulse 96 96 Oximetry Medical Decision Making - Medical Decision Making Patient is a 19-year-old male who presents raise from today with chief complaint of hives. He does have some diffuse hives over his legs, as well as his abdomen and chest and back. Patient settled signs are stable. Head appears normal, no angioedema. No related exposures to onset of hives the family can be aware of. At this time Patient was given slight Medrol Benadryl and Pepcid. On reevaluation after an hour of meds he is improved has no further hives. Patient will be discharged at this time with follow-up with primary care doctor. He does have a scheduled ERCP at [facility] on . Discussed asking his GI specialist at [facility] if he can take steroids prior to his ERCP. Disposition Clinical Impression: Hives Disposition: HOME SELF-CARE Condition: Good Instructions (If sedation given, give patient instructions): Urticaria (ED) Additional Instructions: Patient advised to follow-up with [facility] for scheduled ERCP. Discussed with [facility] of what medications can be taken prior to testing. Patient should take the medications as prescribed as of tomorrow as well. Avoid any new exposures. Prescriptions: diphenhydrAMINE HCL [Benadryl] 25 mg PO QID #20 tab Famotidine [Pepcid] 20 mg PO DAILY #20 tablet predniSONE 20 mg PO BID #6 tab Is patient prescribed a controlled substance at d/c from ED?: No Referrals: Jonathon Mendes MD [Primary Care Provider] - 1-2 days Time of Disposition: 02:58
[2019-10-22 02:34] VITALS: BP 116/59; PULSE 67; TEMP 98.8
== END 2019-10-22 03:17 | disposition home or self-care (01) ==
LOC: EC 01:16
DX: L50.9 Urticaria, unspecified (principal); E07.9 Disorder of thyroid, unspecified; Z79.890 Hormone replacement therapy; Z88.1 Allergy status to other antibiotic agents; Z88.2 Allergy status to sulfonamides
CPT/HCPCS: 99283; 96374; 96375 ×2; J1200; J2930

== ENCOUNTER → 2020-05-14 | Outpatient (CLI) | payer BC ==
[2020-05-14 14:04] LABS: Basophils % (A) 0 %; Eosinophils # (A) 0.1 k/uL (0-0.7); Eosinophils % (A) 2 %; Lymphocytes # (A) 1.5 k/uL (1.0-4.8); Lymphocytes % (A) 17 %; MCHC 32.6 g/dL (31.0-37.0); MCV 82.6 fL (80.0-100.0); Mean Platelet Volume 7.6; Monocytes # (A) 0.4 k/uL (0-1.0); Monocytes % (A) 5 %; Neutrophils # (A) 6.2 k/uL (1.3-7.7); Neutrophils % (A) 73 %; Platelet Count 161 k/uL (150-450); RBC 5.57 m/uL (4.30-5.90); RDW 14.1 % (11.5-15.5); WBC 8.5 k/uL (4.0-11.0)
[2020-05-14 20:13] LABS: % Iron Saturation 12.84 (15.00-50.00); Albumin 4.9 g/dL (3.80-4.90); Albumin/Globulin Ratio 2.58 (1.60-3.17); Bilirubin, Conjugated 0.3 mg/dL (0.20-0.40); Bilirubin,Unconjugated 0.6 mg/dL; Globulin 1.9 g/dL (1.6-3.3); Total Bilirubin 0.9 mg/dL (0.3-1.2); Total Protein 6.8 g/dL (6.2-8.2)
[2020-05-14 20:21] LABS: Ferritin 52.5 ng/mL (22.0-322.0)
== END | disposition home or self-care (01) ==
LOC: LABWHC1 12:43
PROVIDERS: ATTEND Internal Medicine
DX: K75.9 Inflammatory liver disease, unspecified (principal); D84.9 Immunodeficiency, unspecified
CPT/HCPCS: 36415; 80076; 82728; 83540; 83550; 85025; 86803

== ENCOUNTER → 2020-05-20 | Outpatient (CLI) | payer BC ==
[2020-05-20 12:40] LABS: Basophils % (A) 0 %; Eosinophils # (A) 0.1 k/uL (0-0.7); Eosinophils % (A) 2 %; HCT 45.9 % (39.0-53.0); HGB 15.1 gm/dL (13.0-17.5); Lymphocytes # (A) 1.2 k/uL (1.0-4.8); Lymphocytes % (A) 18 %; MCHC 32.9 g/dL (31.0-37.0); Mean Platelet Volume 7.8; Monocytes # (A) 0.4 k/uL (0-1.0); Monocytes % (A) 6 %; Neutrophils # (A) 5.2 k/uL (1.3-7.7); Neutrophils % (A) 74 %; Platelet Count 130 k/uL (150-450); RDW 14.2 % (11.5-15.5); WBC 7.1 k/uL (4.0-11.0)
[2020-05-20 19:35] LABS: Erythrocyte Sedimentation Rate 3 mm/Hr (0-15)
[2020-05-20 19:37] LABS: ALT 39 U/L (10-49); AST 28 U/L (14-35); Albumin/Globulin Ratio 2.61 (1.60-3.17); Alkaline Phosphatase 131 U/L (41-126); BUN/Creat Ratio 22.22 Ratio (12.00-20.00); C Reactive Protein <0.4 mg/dL (0.0-0.8); Calcium 9.6 mg/dL (8.7-10.3); Carbon Dioxide 26.3 mmol/L (21.6-31.8); Chloride 107 mmol/L (96-109); GGT 19 U/L (0-73); Globulin 1.8 g/dL (1.6-3.3); Glucose 107 mg/dL (70-110); Non-African American GFR(CKD) 122.5 (60.0-200.0); Potassium 4.7 mmol/L (3.5-5.5); Sodium 140 mmol/L (135-145); Total Bilirubin 1.1 mg/dL (0.3-1.2); Total Protein 6.5 g/dL (6.2-8.2)
[2020-05-20 21:04] LABS: Hemoglobin A1C 5.1 % (4.0-6.0)
== END | disposition home or self-care (01) ==
LOC: LABWHC1 11:00
PROVIDERS: ATTEND Pediatrics
DX: K85.91 Acute pancreatitis with uninfected necrosis, unspecified (principal); D73.1 Hypersplenism; D80.2 Selective deficiency of immunoglobulin A [IgA]; D80.3 Selective deficiency of immunoglobulin G [IgG] subclasses
CPT/HCPCS: 36415; 80053; 82306; 82977; 83036; 83690; 84439; 84443; 85025; 85652; 86140

== ENCOUNTER → 2020-11-01 | Outpatient (CLI) | payer BC ==
[2020-11-01 16:02] LABS: T4, Free (Free Thyroxine) 1.1 ng/dL (0.80-1.80)
== END | disposition home or self-care (01) ==
LOC: LABWHC1 09:25
PROVIDERS: ATTEND Internal Medicine
DX: E03.9 Hypothyroidism, unspecified (principal)
CPT/HCPCS: 36415; 84439; 84443

== ENCOUNTER → 2021-03-23 | Outpatient (CLI) | payer BC ==
[2021-03-23 15:07] LABS: Basophils # (A) 0.02 X 10*3/uL (0.00-0.10); Basophils % (A) 0.3 %; Eosinophils % (A) 1.5 %; HCT 45.6 % (39.6-50.0); Lymphocytes # (A) 1.41 X 10*3/uL (0.90-5.00); Lymphocytes % (A) 21.3 %; MCHC 32.9 g/dL (32.0-37.0); MCV 85.2 fL (80.0-97.0); Mean Platelet Volume 11.3 fL (9.5-12.2); Monocytes # (A) 0.48 X 10*3/uL (0.20-1.00); Monocytes % (A) 7.3 %; Neutrophils # (A) 4.59 X 10*3/uL (1.80-7.70); Neutrophils % (A) 69.3 %; Platelet Count 126 X 10*3/uL (140-440); RBC 5.35 X 10*6/uL (4.40-5.60); RDW 13.5 % (11.5-14.5); WBC 6.62 X 10*3/uL (4.50-10.00)
[2021-03-23 17:10] LABS: Erythrocyte Sedimentation Rate 2 mm/Hr (0-15)
[2021-03-23 21:00] LABS: ALT 23 U/L (10-49); AST 19 U/L (14-35); Albumin/Globulin Ratio 2.67 (1.60-3.17); Alkaline Phosphatase 114 U/L (41-126); BUN/Creat Ratio 14.44 Ratio (12.00-20.00); C Reactive Protein <0.4 mg/dL (0.0-0.8); Calcium 9.5 mg/dL (8.7-10.3); Carbon Dioxide 24.3 mmol/L (21.6-31.8); Chloride 107 mmol/L (96-109); Cholesterol 127 mg/dL (0-200); Creatine Kinase 163 U/L (35-257); Globulin 1.8 g/dL (1.6-3.3); Glucose 142 mg/dL (70-110); LDL Cholesterol,Calculated 77.8 mg/dL (0.0-131.0); Non-African American GFR(CKD) 121.7 (60.0-200.0); Potassium 4.4 mmol/L (3.5-5.5); Sodium 141 mmol/L (135-145); Total Bilirubin 1.2 mg/dL (0.3-1.2); Total Protein 6.6 g/dL (6.2-8.2)
== END | disposition home or self-care (01) ==
LOC: LABWHC1 09:09
PROVIDERS: ATTEND Internal Medicine
DX: Z00.00 Encounter for general adult medical examination without abnormal findings (principal); E87.8 Other disorders of electrolyte and fluid balance, not elsewhere classified; E78.5 Hyperlipidemia, unspecified; E03.9 Hypothyroidism, unspecified; D64.9 Anemia, unspecified; D80.1 Nonfamilial hypogammaglobulinemia
CPT/HCPCS: 36415; 80053; 80061; 82550; 84439; 84443; 85025; 85652; 86140

== ENCOUNTER 2021-10-12 11:34 | Emergency (ER) | payer BC ==
[2021-10-12 11:44] VITALS: TEMP 98
[2021-10-12] MEDS ORDERED: SODIUM CHLORIDE 0.9% 50 ML IVPB ONE (12:30)
[2021-10-12] MEDS ORDERED: SOTROVIMAB (EUA) 500 MG in SODIUM CHLORIDE 0.9% 100 ML IVPB ONE (12:30)
--- NOTE | 2021-10-12 12:59 | ED ---
General Adult HPI - General Chief complaint: Upper Respiratory Infection Stated complaint: Covid+/Infusion Time Seen by Provider: 10/12/21 11:45 Source: patient Mode of arrival: ambulatory Limitations: no limitations - History of Present Illness Initial comments: Patient is a 21-year-old male with past medical history remarkable for agammaglobulinemia. Presents emergency Department seeking monoclonal antibody infusion. His Covid positive. Urgent care's attempted to fax over the forearms. Is complaining of mild upper respiratory symptoms, diffuse fatigue and joint pain. Denies any shortness breath, chest pain, abdominal pain, nausea, vomiting, diarrhea. Patient was not vaccinated for COVID-19. Presents for monoclonal antibody therapy. - Related Data Home Medications Medication Instructions Recorded Confirmed Levothyroxine Sodium [Tirosint] 75 mcg PO DAILY 08/18/18 09/20/19 Triamcinolone 0.1% Cream [Kenalog 1 applicatio TOPICAL BID 08/08/19 09/20/19 0.1% Cream] Acetaminophen Tab [Tylenol Tab] 325 mg PO Q4H PRN 09/20/19 09/20/19 Previous Rx's Medication Instructions Recorded Famotidine [Pepcid] 20 mg PO DAILY #20 tablet 10/22/19 diphenhydrAMINE HCL [Benadryl] 25 mg PO QID #20 tab 10/22/19 predniSONE [Deltasone] 20 mg PO BID #6 tab 10/22/19 Allergies Allergy/AdvReac Type Severity Reaction Status Date / Time levofloxacin Allergy Rash/Hives Verified 10/12/21 11:44 sulfamethoxazole Allergy Rash/Hives Verified 10/12/21 11:44 [From Bactrim] trimethoprim [From Bactrim] Allergy Rash/Hives Verified 10/12/21 11:44 Review of Systems ROS Statement: Those systems with pertinent positive or pertinent negative responses have been documented in the HPI. Review of Systems: CONST: Denies fever EYES: Denies blurry vision ENT: Endorses nasal congestion. C/V: Denies Chest pain RESP: Denies shortness of breath GI: Denies abdominal pain : Denies dysuria SKIN: Denies rash. MSK: Denies joint pain. NEURO: Denies headache ROS Other: All systems not noted in ROS Statement are negative. Past Medical History Past Medical History: Thyroid Disorder Additional Past Medical History / Comment(s): sensory auditory processing disorder. hypogammagloulinemia. speech disorder History of Any Multi-Drug Resistant Organisms: MRSA Date of last positivie culture/infection: 2009 MDRO Source:: left knee Past Surgical History: Adenoidectomy, Appendectomy, Cholecystectomy, Tonsillectomy Additional Past Surgical History / Comment(s): ear tubes. Past Psychological History: No Psychological Hx Reported Smoking Status: Never smoker Past Alcohol Use History: None Reported Past Drug Use History: None Reported General Exam - General Exam Comments Initial Comments: General: Appears in no acute distress. HEAD: Normal with no signs of head trauma. EYES: PERRLA, EOMI, conjunctiva normal, no discharge. ENT: Hearing grossly intact, normal oropharynx. RESPIRATORY: Clear breath sounds bilaterally. No wheezes, rales, or rhonchi. Not hypoxic, no increased work of breathing. C/V: Regular rate and rhythm. S1 and S2 auscultated, no edema, peripheral pulses 2+ and intact throughout ABD: Abd is soft, nontender, nondistended EXT: Normal range of motion, no obvious deformity SKIN: No rashes or lesions observed on exposed skin. NEURO: Alert and oriented 4. No focal deficits. Limitations: no limitations Course Vital Signs 10/12/21 11:40 Temperature 98.0 F Pulse Rate 94 Respiratory 18 Rate Blood Pressure 140/85 O2 Sat by Pulse 97 Oximetry Medical Decision Making - Medical Decision Making Based on the patient's presentation and physical exam, his Covid positive seeking monoclonal antibody therapy. He does meet criteria. He is not hypoxic and is not in respiratory distress. I do not believe that further laboratory studies or imaging are required at this time. Patient is trying to obtain a faxed copy of his positive COVID-19 testing from yesterday from the urgent care. We also rechecked the urgent care. The meantime we will provide him with monoclonal antibody therapy. He tolerated therapy well. Will be discharged home at this time. We discussed donnie. Advised that he use [id number] zinc and vitamin C tablets. He was in agreement this plan. 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 I instructed the patient to follow up with their PCP in the next 3 days. I explained that the patient should return to the emergency department if they experience any worsening symptoms. Strict return precautions were discussed with the patient. The patient expressed understanding of these instructions. I answered all questions that the patient had. The patient was discharged home in good condition with their prescriptions and follow up information. Disposition Clinical Impression: COVID-19 virus infection Disposition: HOME SELF-CARE Condition: Good Instructions (If sedation given, give patient instructions): Coronavirus Disease 2019 (COVID-19) Is patient prescribed a controlled substance at d/c from ED?: No Referrals: Jonathon Mendes MD [Primary Care Provider] - 1-2 days
[2021-10-12 14:01] VITALS: BP 134/79; PULSE 92; RESP 20
== END 2021-10-12 14:01 | disposition home or self-care (01) ==
LOC: EC 11:34
DX: U07.1 COVID-19 (principal)
CPT/HCPCS: 99283 ×2; 96360 ×2; M0247; Q0247